=== PATIENT | male | born 1955 ===

== ENCOUNTER 2020-03-07 06:58 | Day surgery (SDC) | payer MEDICARE ==
[~2020-03-07] VITALS: Ht 182.9 cm; Wt 81.6 kg
[~2020-03-07 06:58] MED LIST: GABA300 PO; HYDR1TAB94 PO
[2020-03-07] MEDS ORDERED: GABA300 (07:27)
== END 2020-03-07 09:56 | disposition home or self-care (01) ==
LOC: ORSCSDS 06:58
PROVIDERS: Internal Medicine Gastroenterology
PROC: 0DBN8ZX Excision of Sigmoid Colon, Via Natural or Artificial Opening Endoscopic, Diagnostic (ICD-10-PCS; principal; 2020-03-07 08:15)
PROC: 0DBL8ZX Excision of Transverse Colon, Via Natural or Artificial Opening Endoscopic, Diagnostic (ICD-10-PCS; principal; 2020-03-07 08:15)
PROC: 0DBK8ZX Excision of Ascending Colon, Via Natural or Artificial Opening Endoscopic, Diagnostic (ICD-10-PCS; principal; 2020-03-07 08:15)
DX: Z12.11 Encounter for screening for malignant neoplasm of colon (principal); D12.2 Benign neoplasm of ascending colon; D12.3 Benign neoplasm of transverse colon; K63.5 Polyp of colon; K64.8 Other hemorrhoids
CPT/HCPCS: J0461; J2405; J2704; J7120

== ENCOUNTER 2022-08-10 12:57 | Inpatient (IN) | payer OTHER ==
[~2022-08-10] VITALS: Ht 182.9 cm; Wt 79.8 kg
[~2022-08-10 12:57] MED LIST changes: -Norco 5-325 Ta1 EACH PO; -PREGABALIN100 MG PO; -Vitamin D1000 UNI1 PO; -XARELTO15 MG PO
[2022-08-10] MEDS ORDERED: PREGABALIN100 MG PO (13:55)
[2022-08-10 14:14] LABS: International Normalized Ratio 1.14; Prothrombin Time Results 11.9 Sec (9.7-11.5)
[2022-08-10] MEDS ORDERED: Vitamin D1000 UNI1 PO (17:34)
--- NOTE | 2022-08-10 18:01 | NUR ---
ADMIT NOTED... PT ARRIVED ON THE UNIT AT 1700 THE PT IS A&Ox4. HE WAS ADMITTED FOR A NON-OCCLUSIVE TRANSIENT SADDLE PE. HE IS ON 2L NC WITH O2 SATS >90% L/S CLEAR AND DIM T/O RR IS IN THE HIGH 20'S. THE PT DENIES ANY CHEST PAIN OR SOB AT THIS TIME. THE PT IS IN SR IN THE 90'S BP IS SOFT BUT STABLE. THE PT HAS A DVT IN THE LEFT LEG, THE LEFT CALF IS SLIGHTLY LARGER THAN THE RIGHT AND WARM TO THE TOUCH. THE PT CURRENTLY DENIES ANY PAIN. PULSES ARE PALPABLE TO THE LLE BUT FAINT. BT PRESENT AND VERY HYPERACTIVE, ABD IS SOFT AND NONTENDER TO PALPATION. HEPARIN DRIP RUNNING AT 18U/KG/HR PER ORDERS. PLAN IS FOR THE PT TO GET A THROMBECTOMY WITH DR. ORTEGA TOMORROW AT SOME POINT UNLESS THE PT BECOMES UNSTABLE. CALL LIGHT IN REACH WILL CONTINUE TO MONITOR UNTIL REPORT IS GIVEN TO ONCOMING RN.
[2022-08-11 05:24] LABS: BASOPHILS ABSOLUTE AUTO 0.06 K/mm3 (0.00-0.23); BASOPHILS PERCENT AUTO 1 % (0-2); EOSINOPHILS ABSOLUTE AUTO 0.29 K/mm3 (0.00-0.68); EOSINOPHILS PERCENT AUTO 3 % (0-6); Hematocrit 43.6 % (37.0-53.0); Hemoglobin 15.3 g/dL (13.5-17.5); IMMATURE GRAN ABSOLUTE AUTO 0.03 K/mm3 (0.00-0.10); IMMATURE GRAN PERCENT AUTO 0 % (0-1); LYMPHOCYTES ABSOLUTE AUTO 2.04 K/mm3 (0.84-5.20); LYMPHOCYTES PERCENT AUTO 21 % (21-46); MONOCYTES ABSOLUTE AUTO 1.02 K/mm3 (0.16-1.47); MONOCYTES PERCENT AUTO 11 % (4-13); Mean Corpuscular HGB 30.5 pg (26.0-34.0); Mean Corpuscular HGB Conc 35.1 g/dL (31.5-36.5); Mean Corpuscular Volume 87 fL (80-100); Mean Platelet Volume 9.1 fL (9.1-12.4); NEUTROPHILS ABSOLUTE AUTO 6.15 K/mm3 (1.96-9.15); NEUTROPHILS PERCENT AUTO 64 % (41-73); Platelet Count 203 K/mm3 (150-400); RDW Coefficient Variation 12.1 % (11.7-14.2); RDW Standard Deviation 38.2 fL (35.1-46.3); Red Blood Cell Count 5.02 M/mm3 (4.30-5.90); White Blood Cell Count 9.59 K/mm3 (4.00-11.30)
--- NOTE | 2022-08-11 05:27 | NUR ---
SHIFT SUMMARY: PT. REMAINED STABLE OVERNIGHT. VS ARE WNL AND PT. WAS MEDICATED ONCE PER EMAR FOR PAIN IN CALF. PT. WAS NPO SINCE MIDNIGHT AND HAS BEEN COMFORTABLE THROUGHOUT THE NIGHT. HEPARIN DRIP IS STILL RUNNING. PT. IS RESTING WITH CALL LIGHT IN REACH.
[2022-08-11 05:34] LABS: Anti-Xa UFH, PHA Monitoring 0.63 IU/mL; International Normalized Ratio 1.18; Prothrombin Time Results 12.3 Sec (9.7-11.5)
[2022-08-11 05:50] LABS: Albumin, Blood 2.6 g/dL (3.4-5.0); Albumin/Globulin Ratio 0.7 (0.8-1.8); Bilirubin, Total 0.8 mg/dL (0.1-1.0); Bun/Creatinine Ratio 12.7 (12.0-20.0); Calcium, Blood 8.7 mg/dL (8.5-10.1); Creatinine, Blood 0.94 mg/dL (0.60-1.20); Globulin, Blood 3.7 g/dL (2.2-4.0); Potassium, Blood 3.9 mmol/L (3.5-5.5); Total Protein, Blood 6.3 g/dL (6.4-8.2)
--- NOTE | 2022-08-11 07:15 | NUR ---
SHIFT ASSESSMENT ASSUMED CARE OF PT @ 0700. PT A&OX4, DAWSON, FOLLOWING COMMANDS. PULSES INTACT TO LE'S. DENYING PAIN/ SOB AT REST. ON HEPARIN GTT @ 17U/KG/HR. NSR ON LPN RN. VSS. AWAITING HAIR AND MAKEUP DESIGNER. WILL MONITOR CLOSELY.
--- NOTE | 2022-08-11 07:49 | NUR ---
SPOKE WITH [facility], THEY WILL NOTIFY DR ORTEGA WHEN HE ARRIVES REGARDING CONSULT. CONSULT ORDERED.
[2022-08-11 08:48] LABS: SARS-Cov-2 (COVID-19) PCR, MMC NEGATIVE (NEGATIVE)
--- NOTE | 2022-08-11 09:55 | NUR ---
PT TRANSFERED TO [employer] VIA ICU BED.
--- NOTE | 2022-08-11 12:05 | NUR ---
PT ARRIVED TO UNIT FROM CON[employer]ION SERVICES DIRECTOR. DENIES ANY PAIN OR SOB. R FEMORAL ACCESS SITE WITH NO SIGNS OF BLEEDING. EDUCATED PT AND FAMILY REGARDING PT LAYING FLAT AND NOT BENDING LEGS, HIPS, NECK. PT AND FAMILY UNDERSTANDING.
--- NOTE | 2022-08-11 18:40 | NUR ---
SHIFT SUMMARY PT REMAINS ALERT AND ORIENTED, DAWSON. DENIES CP. STILL C/O MILD PAIN IN LLE WITH MOVEMENT. PT NOW SITTING UPRIGHT IN BED, NO SIGNS OF BLEEDING FROM FEMORAL SITE. O2 SATS NOW >90% ON RA, STILL BECOMING MILDLY SOB WITH EXERTION. DIET ADVANCED, TOLERATING WELL. PT NOW PCU STATUS, AWAITING ROOM. NO OTHER COMPLAINTS OR CONCERNS AT THIS TIME.
--- NOTE | 2022-08-12 05:26 | NUR ---
SHIFT SUMMARY: PT. DID WELL OVERNIGHT, VS ALL WNL AND PT. DID NOT COMPLAIN OF PAIN ANY THROUGHOUT THE NIGHT. NO DRAINAGE FROM CATHETER SITE. PT. WAS PLACED ON 2L NC FOR COMFORT HE WOULD HIT 89% O2 SATURATIONS SOMETIMES HE SLEPT. PT. RESTING COMFORTABLY WITH CALL LIGHT IN REACH.
--- NOTE | 2022-08-12 06:37 | NUR ---
PT. TRANSFERRED TO PCU BED 19
[2022-08-12 06:40] LABS: Bun/Creatinine Ratio 17.4 (12.0-20.0); Calcium, Blood 8.7 mg/dL (8.5-10.1); Creatinine, Blood 0.92 mg/dL (0.60-1.20); Potassium, Blood 4.2 mmol/L (3.5-5.5)
--- NOTE | 2022-08-12 07:18 | NUR ---
assumption of care assumed care at 0650. pt axo. on ra. in sr. heparin gtt infusing per emar. pt denies sob/pain except L calf pain. pt oriented to room. bed in low position. bed alarm on. call light within reach.
[2022-08-12 08:54] LABS: Hematocrit 39.1 % (37.0-53.0); Hemoglobin 13.6 g/dL (13.5-17.5); Mean Platelet Volume 9.3 fL (9.1-12.4); Platelet Count 214 K/mm3 (150-400)
--- NOTE | 2022-08-12 15:42 | NUR ---
Dr. Lentz here, explaining the procedure thrombectomy for the DVT planned for around mid-day tomorrow. PT signed consent with the physician.
--- NOTE | 2022-08-12 18:16 | NUR ---
Uneventful day; the pt was on bedrest, had several visitors in his room, and generally had no needs voiced. States that he is having some mild pain in his left calf, but nothing else. NOted that he does still have some shortness of breath in extended conversation, but he is not needing supplemental oxygen.
--- NOTE | 2022-08-13 06:25 | NUR ---
SHIFT SUMMARY NEURO: A&OX4. NO NUMBNESS/TINGLING REPORTED. FOLLOWS COMMANDS. CARDIAC: NSR AND NORMOTENSIVE. NO COMPLAINTS OF CHEST PAIN. RESPIRATORY: ROOM AIR. BREATH SOUNDS CLEAR. GI/: NPO AT MIDNIGHT. CONTINENT OF STOOL AND URINE. MUSCULOSKELETAL: FULL STRENGTH ALL FOUR EXTREMITIES INTEGUMENTARY: RIGHT GROIN SURGICAL ACCESS SITE. FLOWSTASIS CLOSURE DEVICE. NO CHANGES FROM START OF SHIFT.
[2022-08-13 06:29] LABS: BASOPHILS ABSOLUTE AUTO 0.03 K/mm3 (0.00-0.23); BASOPHILS PERCENT AUTO 0 % (0-2); EOSINOPHILS ABSOLUTE AUTO 0.31 K/mm3 (0.00-0.68); EOSINOPHILS PERCENT AUTO 4 % (0-6); Hematocrit 35.2 % (37.0-53.0); Hemoglobin 12.4 g/dL (13.5-17.5); IMMATURE GRAN ABSOLUTE AUTO 0.03 K/mm3 (0.00-0.10); IMMATURE GRAN PERCENT AUTO 0 % (0-1); LYMPHOCYTES ABSOLUTE AUTO 1.46 K/mm3 (0.84-5.20); LYMPHOCYTES PERCENT AUTO 19 % (21-46); MONOCYTES ABSOLUTE AUTO 0.82 K/mm3 (0.16-1.47); MONOCYTES PERCENT AUTO 11 % (4-13); Mean Corpuscular HGB 30.6 pg (26.0-34.0); Mean Corpuscular HGB Conc 35.2 g/dL (31.5-36.5); Mean Corpuscular Volume 87 fL (80-100); Mean Platelet Volume 9.3 fL (9.1-12.4); NEUTROPHILS ABSOLUTE AUTO 5.18 K/mm3 (1.96-9.15); NEUTROPHILS PERCENT AUTO 66 % (41-73); Platelet Count 213 K/mm3 (150-400); RDW Coefficient Variation 11.9 % (11.7-14.2); RDW Standard Deviation 38.2 fL (35.1-46.3); Red Blood Cell Count 4.05 M/mm3 (4.30-5.90); White Blood Cell Count 7.83 K/mm3 (4.00-11.30)
[2022-08-13 06:59] LABS: Bun/Creatinine Ratio 14.8 (12.0-20.0); Calcium, Blood 8.6 mg/dL (8.5-10.1); Creatinine, Blood 0.95 mg/dL (0.60-1.20); Potassium, Blood 3.9 mmol/L (3.5-5.5)
--- NOTE | 2022-08-13 12:52 | NUR ---
This morning the pt has no complaints, does say that he has mild pain in the left calf, worse with dorsiflexion. He is resting in bed, alert, oriented and conversing pleasantly. NPO for anticipated thrombectomy today around "mid-day" per Dr. Lentz.
--- NOTE | 2022-08-13 14:22 | NUR ---
RETURNED FROM DELIVERY CREW MEMBER
--- NOTE | 2022-08-13 14:24 | NUR ---
1200 Urine-soiled pad and linen removed underneath the patient. Purewick was also replaced and linen changed. Pt repositioned. He is somewhat sleepy, not always staying awake during conversation. 1420 Pt c/o 8/10 pain in the right shoulder. He is awake and talking, eating applesauce and yogurt at this time. Given medication ordered for pain relief, Oxycodone PRN.
--- NOTE | 2022-08-13 14:39 | NUR ---
Call to Dr. Villasenor regarding pt's pain relief. Pt is not lethargic this afternoon, making conversation, and sleeping once the oxycodone takes effect. will restart pt's home medication of gabapentin this afternoon.
--- NOTE | 2022-08-13 17:12 | NUR ---
Pt turned to his right side for the assessment of flowstasis device. Device is secure with a dressing on the left calf. Flowstasis device was loosened and site observed closely for any signs of bleeding, and there was none. Device was removed and the suture gently pulled free. Scant amount of oozing of blood noted. Pressure for 2 minutes was applied with gauze over the site, and no further bleeding noted. 2x2 gauze folded into quarters and sterile windown dressing was applied over this. 10 minutes later there is no bleeding noted. Dressing is clean, dry and intact.
--- NOTE | 2022-08-13 17:17 | NUR ---
Pt reports that since the thrombectomy today, he noticed that his left calf is much softer, and that the pain which he was having in the left leg is now gone.
--- NOTE | 2022-08-13 22:36 | NUR ---
PATIENT COMPLAINED OF SUDDEN ONSET 8/10 LEFT LOWER BACK (SCIATIC) PAIN AFTER REPOSITIONING SELF IN BED. NO S/SX OF TRAUMA TO AREA. ADMINISTERED 1 NORCO PER ORDER.
--- NOTE | 2022-08-14 05:03 | NUR ---
LOC: DROWSY, ORIENTED X4, EASILY AWAKENS WITH VERBAL STIMULI RESP: RRR, SPO2 >92% ON RA CARDIAC: NSR 65-75 GI/: NO CHANGES SKIN: RT GROIN ACCESS SITE OPEN TO AIR WITH NO EXUDATE. LT CALF THROMBECTOMY SITE DRESSED WITH GAUZE AND TAGADERM CDI. MISC: -PATIENT HAD SUDDEN ONSET LEFT LOWER BACK PAIN THAT WAS RELIEVED WITH NORCO. STILL C/O STIFFNESS AND PAIN WITH MOVEMENT. PATIENT, OTHERWISE, SLEPT SOUNDLY MOST OF THE NIGHT. -HEPARIN GTT ADJUSTED FROM 16/KG TO 15/KG PER PHARMACY ORDER. 0500 LABS PENDING
[2022-08-14 06:17] LABS: BASOPHILS ABSOLUTE AUTO 0.02 K/mm3 (0.00-0.23); BASOPHILS PERCENT AUTO 0 % (0-2); EOSINOPHILS ABSOLUTE AUTO 0.36 K/mm3 (0.00-0.68); EOSINOPHILS PERCENT AUTO 5 % (0-6); Hematocrit 34.5 % (37.0-53.0); Hemoglobin 11.9 g/dL (13.5-17.5); IMMATURE GRAN ABSOLUTE AUTO 0.04 K/mm3 (0.00-0.10); IMMATURE GRAN PERCENT AUTO 1 % (0-1); LYMPHOCYTES PERCENT AUTO 23 % (21-46); MONOCYTES ABSOLUTE AUTO 0.93 K/mm3 (0.16-1.47); MONOCYTES PERCENT AUTO 12 % (4-13); Mean Corpuscular HGB 30.1 pg (26.0-34.0); Mean Corpuscular HGB Conc 34.5 g/dL (31.5-36.5); Mean Corpuscular Volume 87 fL (80-100); Mean Platelet Volume 9.2 fL (9.1-12.4); NEUTROPHILS PERCENT AUTO 59 % (41-73); Platelet Count 224 K/mm3 (150-400); RDW Coefficient Variation 12.1 % (11.7-14.2); Red Blood Cell Count 3.95 M/mm3 (4.30-5.90); White Blood Cell Count 7.75 K/mm3 (4.00-11.30)
[2022-08-14] MEDS ORDERED: Norco 5-325 Ta1 EACH PO (09:58)
[2022-08-14] MEDS ORDERED: XARELTO15 MG PO (10:00)
--- NOTE | 2022-08-14 17:53 | NUR ---
DISCHARGE NOTE PT LEFT PCU APPROX. 1126 VIA WHEELCHAIR. DISCHARGE INSTRUCTIONS GIVEN TO PT BY THIS RN. ALL IV'S REMOVED. PT STABLE UPON DISCHARGE.
== END 2022-08-14 11:34 | disposition home or self-care (01) | DRG 270 ==
LOC: ER 12:57 → ICUW 15:47 → PCU 08-12 06:30
PROVIDERS: Emergency Medicine; Radiology Diagnostic Radiology; ADMIT Internal Medicine
PROC: 02CQ3ZZ Extirpation of Matter from Right Pulmonary Artery, Percutaneous Approach (ICD-10-PCS; 2022-08-11)
PROC: 02CR3ZZ Extirpation of Matter from Left Pulmonary Artery, Percutaneous Approach (ICD-10-PCS; 2022-08-11)
PROC: B31TYZZ Fluoroscopy of Left Pulmonary Artery using Other Contrast (ICD-10-PCS; 2022-08-11)
PROC: B31SYZZ Fluoroscopy of Right Pulmonary Artery using Other Contrast (ICD-10-PCS; 2022-08-11)
PROC: 04CJ3ZZ Extirpation of Matter from Left External Iliac Artery, Percutaneous Approach (ICD-10-PCS; principal; 2022-08-13)
PROC: 047D3DZ Dilation of Left Common Iliac Artery with Intraluminal Device, Percutaneous Approach (ICD-10-PCS; 2022-08-13)
PROC: B41GYZZ Fluoroscopy of Left Lower Extremity Arteries using Other Contrast (ICD-10-PCS; 2022-08-13)
DX: I82.422 Acute embolism and thrombosis of left iliac vein (principal); I26.92 Saddle embolus of pulmonary artery without acute cor pulmonale; I82.432 Acute embolism and thrombosis of left popliteal vein; E55.9 Vitamin D deficiency, unspecified; I27.20 Pulmonary hypertension, unspecified; Z98.890 Other specified postprocedural states; Z88.8 Allergy status to other drugs, medicaments and biological substances; E78.5 Hyperlipidemia, unspecified; G89.29 Other chronic pain; E88.2 Lipomatosis, not elsewhere classified; I82.412 Acute embolism and thrombosis of left femoral vein
CPT/HCPCS: 37184; 37185; 37187; 37238; 37252; 75743; 75820; 75825; 76937; 80048; 80053; 85014; 85018; 85025; 85049; 85520; 85610; 92978; 93005; 93010; 93306; 99152; 99153; A9270; C1751; C1753; C1757; C1769; C1876; C1887; C1894; J1644; J2250; J3010; J7030; J7040; Q9967; U0004

== ENCOUNTER → 2022-08-10 | Outpatient (CLI) | payer OTHER ==
[~2022-08-10] MED LIST changes: +GABA300; +Norco 5-325 Ta1 EACH PO; +PREGABALIN100 MG PO; +Vitamin D1000 UNI1 PO; +XARELTO15 MG PO
[2022-08-10 09:43] LABS: BASOPHILS ABSOLUTE AUTO 0.04 K/mm3 (0.00-0.23); BASOPHILS PERCENT AUTO 0 % (0-2); EOSINOPHILS ABSOLUTE AUTO 0.21 K/mm3 (0.00-0.68); EOSINOPHILS PERCENT AUTO 2 % (0-6); Hematocrit 46.3 % (37.0-53.0); IMMATURE GRAN ABSOLUTE AUTO 0.02 K/mm3 (0.00-0.10); IMMATURE GRAN PERCENT AUTO 0 % (0-1); LYMPHOCYTES ABSOLUTE AUTO 1.09 K/mm3 (0.84-5.20); LYMPHOCYTES PERCENT AUTO 12 % (21-46); MONOCYTES ABSOLUTE AUTO 0.94 K/mm3 (0.16-1.47); MONOCYTES PERCENT AUTO 10 % (4-13); Mean Corpuscular HGB 31.1 pg (26.0-34.0); Mean Corpuscular HGB Conc 36.7 g/dL (31.5-36.5); Mean Corpuscular Volume 85 fL (80-100); NEUTROPHILS ABSOLUTE AUTO 6.78 K/mm3 (1.96-9.15); NEUTROPHILS PERCENT AUTO 75 % (41-73); Platelet Count 177 K/mm3 (150-400); RDW Standard Deviation 36.1 fL (35.1-46.3); Red Blood Cell Count 5.46 M/mm3 (4.30-5.90); White Blood Cell Count 9.08 K/mm3 (4.00-11.30)
[2022-08-10 09:53] LABS: Albumin, Blood 3.2 g/dL (3.4-5.0); Albumin/Globulin Ratio 0.7 (0.8-1.8); Bilirubin, Total 0.9 mg/dL (0.1-1.0); Bun/Creatinine Ratio 13.5 (12.0-20.0); Calcium, Blood 8.7 mg/dL (8.5-10.1); Creatinine, Blood 0.96 mg/dL (0.60-1.20); Globulin, Blood 4.3 g/dL (2.2-4.0); Potassium, Blood 3.8 mmol/L (3.5-5.5); Total Protein, Blood 7.5 g/dL (6.4-8.2)
== END | disposition home or self-care (01) ==
LOC: LAB 09:38 → LAB SHORT 09:38
PROVIDERS: Physician Assistant Medical
DX: R06.00 Dyspnea, unspecified (principal)
CPT/HCPCS: 80053; 85025; 85379

== ENCOUNTER 2022-08-29 19:38 | Emergency (ER) | payer OTHER ==
[~2022-08-29] VITALS: Ht 180.3 cm; Wt 82.8 kg
[~2022-08-29 19:38] MED LIST changes: +Norco 5-325 Ta1 EACH PO; +PREGABALIN100 MG PO; +Vitamin D1000 UNI1 PO; +XARELTO15 MG PO
[2022-08-29] MEDS ORDERED: ELIQUIS5 M2 PO (23:16)
== END 2022-08-29 23:28 | disposition home or self-care (01) ==
LOC: ER 19:38
DX: I82.412 Acute embolism and thrombosis of left femoral vein (principal); I82.432 Acute embolism and thrombosis of left popliteal vein; I82.442 Acute embolism and thrombosis of left tibial vein; I82.452 Acute embolism and thrombosis of left peroneal vein; Z79.899 Other long term (current) drug therapy; Z79.01 Long term (current) use of anticoagulants
CPT/HCPCS: 93971; A9270

== ENCOUNTER 2023-08-31 07:17 | Day surgery (SDC) | payer OTHER ==
[~2023-08-31] VITALS: Ht 182.9 cm; Wt 83.3 kg
[~2023-08-31 07:17] MED LIST changes: +ELIQUIS5 M2 PO
[2023-08-31] MEDS ORDERED: ELIQUIS2.5 MG (07:35)
--- NOTE | 2023-08-31 09:09 | NUR ---
08/31/23 0909 Roger Xie 7CC NS INJECTED INTO POLYP.
[2023-08-31 09:32] VITALS: BP 117/80
== END 2023-08-31 09:44 | disposition home or self-care (01) ==
LOC: ORSCSDS 07:17
PROVIDERS: Internal Medicine Gastroenterology
PROC: 0DBK8ZX Excision of Ascending Colon, Via Natural or Artificial Opening Endoscopic, Diagnostic (ICD-10-PCS; principal; 2023-08-31 08:15)
DX: Z12.11 Encounter for screening for malignant neoplasm of colon (principal); D12.2 Benign neoplasm of ascending colon; K64.8 Other hemorrhoids; Z86.010 Personal history of colon polyps; Z86.718 Personal history of other venous thrombosis and embolism; Z86.711 Personal history of pulmonary embolism; E78.5 Hyperlipidemia, unspecified; Z79.01 Long term (current) use of anticoagulants; Z79.899 Other long term (current) drug therapy
CPT/HCPCS: 88305; J2704; J7120